=== PATIENT | male | born 1995 | race Caucasian/White ===

== ENCOUNTER 2020-08-19 13:22 | Emergency (ER) | payer OTHER ==
[~2020-08-19] VITALS: Ht 185.4 cm; Wt 104.5 kg
--- NOTE | 2020-08-19 13:43 | NUR ---
BREAK RN: PTS AT BEDSIDE. PT VERBALIZES UNDERSTANDING OF POC. CALL LIGHT W/I REACH,
[2020-08-19 14:09] LABS: BASOPHILS % (AUTO) 1 % (0-1); EOSINOPHILS % (AUTO) 5 % (1-7); LYMPHOCYTES % (AUTO) 25 % (22-44); MEAN CORPUSCULAR HEMOGLOBIN 31.9 pg (27.5-34.5); MEAN PLATELET VOLUME 7.4 fL (7.4-10.4); MONOCYTES % (AUTO) 7 % (2-9); NEUTROPHILS % (AUTO) 62 % (42-75); PLATELET COUNT 403 x10^3/uL (130-400); RED BLOOD COUNT 5.17 x10^6/uL (4.38-5.82); RED CELL DISTRIBUTION WIDTH 12.8 % (9.4-14.8)
--- NOTE | 2020-08-19 14:12 | NUR ---
BREAK RN: PT OOB AND AMBULATED TO BATHROOM, UPRIGHT STEADY GAIT. URNIE SAMPLE COLLECTED AND SENT TO LAB. PT RTD TO ROOM W/O INCIDENT. ALL MONITORS PLACED AND CALL LIGHT W/I REACH
[2020-08-19 14:18] LABS: ANION GAP 9 mmol/L (5-15); CALCIUM 9.2 mg/dL (8.5-10.1); CHLORIDE 111 mmol/L (98-107); CREATININE 0.99 mg/dL (0.7-1.3)
[2020-08-19 14:35] LABS: BARBITURATE SCREEN, URINE Negative (Negative); CANNABINOID SCREEN, URINE Negative (Negative)
[2020-08-19 14:53] LABS: AMPHETAMINE SCREEN, URINE Negative (Negative); BENZODIAZEPINE SCREEN, URINE Negative (Negative); COCAINE SCREEN, URINE Negative (Negative); METHADONE SCREEN, URINE Negative (Negative); OPIATE SCREEN, URINE Negative (Negative)
[2020-08-19 14:58] LABS: MD SCAN
[2020-08-19 16:02] VITALS: BP 131/78
--- NOTE | 2020-08-19 16:08 | NUR ---
PT REC'VD DISCHARGE INSTRUCTIONS AND EDUCATION. PT AND SPOUSE HAD NO QUESTIONS. PT AMBULATED TO DC AREA, STEADY GAIT
== END 2020-08-19 16:12 ==
LOC: ED 16:05
DX: R55 Syncope and collapse (principal); R94.31 Abnormal electrocardiogram [ECG] [EKG]
CPT/HCPCS: 36415; 80048; 80307; 80320; 83735; 85025; 93005; 99285; G0480